=== PATIENT | male | born 1945 | race Caucasian/White ===

== ENCOUNTER 2024-06-15 16:05 | Emergency (ER) | payer MEDICARE ==
[~2024-06-15] VITALS: Ht 177.8 cm; Wt 69.2 kg
[~2024-06-15 16:05] MED LIST: ASCO500C18 PO; ASPI-611 PO; CHOL10008 PO; COR3.125T PO; DOXY-1 PO; ESCI-8 PO; FLO0.4C PO; MULT-620 PO; PRED1TAB PO; ROSU20TA2 PO; TICA90TA PO; TOLT4CAP28 PO; UBID100C45 PO
[2024-06-15 16:22] VITALS: BP 99/46; PULSE 78; RESP 16; TEMP 98.4; O2SAT 98
== END 2024-06-15 19:38 | disposition left against medical advice (07) ==
LOC: ER 16:06
DX: R10.9 Unspecified abdominal pain (principal); Z53.21 Procedure and treatment not carried out due to patient leaving prior to being seen by health care provider

== ENCOUNTER 2024-06-18 15:39 | Outpatient (CLI) | payer MEDICARE | END 2024-06-18 23:59 | disposition home or self-care (01) | LOC: MRI 15:39 | PROVIDERS: ATTEND Internal Medicine | DX: M86.8X8 Other osteomyelitis, other site (principal); M89.9 Disorder of bone, unspecified; G96.191 Perineural cyst | CPT/HCPCS: 72195 ==

== ENCOUNTER 2024-06-25 16:32 | Emergency (ER) | payer MEDICARE ==
[~2024-06-25] VITALS: Ht 180.3 cm; Wt 68.2 kg
[2024-06-25] MEDS: morphine 4 MG/ML inj SYRINge IV ONE (18:55)
[2024-06-25] MEDS: ondansetron/PF 4mg/2ml inj IV ONE (18:55)
[2024-06-25 19:19] LABS: BASOPHILS % (AUTO) 0.8 % (0-1); EOSINOPHILS # (AUTO) 0.2 X10'3 (0-0.9); HEMATOCRIT 39.3 % (42.0-52.0); HEMOGLOBIN 13.3 g/dl (14.0-17.9); LYMPHOCYTES # (AUTO) 0.9 X10'3 (1.1-4.8); LYMPHOCYTES % (AUTO) 17.4 % (21-51); MEAN CORPUSCULAR HEMOGLOBIN 30.1 PG (27.0-31.0); MEAN CORPUSCULAR HGB CONC 33.9 g/dL (33.0-36.5); MEAN CORPUSCULAR VOLUME 88.9 FL (78-98); MEAN PLATELET VOLUME 8.2 FL (7.4-10.4); MONOCYTES # (AUTO) 0.7 X10'3 (0-0.9); MONOCYTES % (AUTO) 14.3 % (2-12); NEUTROPHILS # (AUTO) 3.2 X10'3 (1.8-7.7); NEUTROPHILS % (AUTO) 64.5 % (42-75); PLATELET COUNT 143 X10'3 (140-440); RED BLOOD COUNT 4.42 X10'6 (4.70-6.10); RED CELL DISTRIBUTION WIDTH 13.8 % (11.5-14.5)
[2024-06-25] MEDS: normal saline 1000ML IV soln IVB ONE (19:19)
[2024-06-25 19:23] LABS: ALBUMIN 3.6 G/DL (3.4-5.0); ANION GAP 6 (8-16); BLOOD UREA NITROGEN 26 MG/DL (7-18); BUN/CREATININE RATIO 20.3 (10.0-20.0); CALCIUM 9.1 MG/DL (8.5-10.1); CHLORIDE 105 MMOL/L (99-107); CREATININE 1.28 MG/DL (0.60-1.10); GLUCOSE 94 MG/DL (70-104); LIPASE 31 U/L (16-77); POTASSIUM 4.3 MMOL/L (3.5-5.1); SODIUM 140 MMOL/L (135-145); TOTAL CARBON DIOXIDE 29.1 MMOL/L (24-32); eCRCL 47 ML/MIN; eGFR 54 ML/MIN
[2024-06-25] MEDS ORDERED: iohexol 300mg/ml 100ml inj. ONE (19:33)
[2024-06-25 20:18] LABS: BILIRUBIN,URINE NEGATIVE (Neg); CLARITY,URINE CLEAR (Clear); COLOR,URINE YELLOW (Yellow); GLUCOSE, URINE >=1000 mg/dl (Neg); KETONES,URINE NEGATIVE (Neg); LEUKOCYTE ESTERASE ,URINE NEGATIVE (Neg); NITRITES, URINE NEGATIVE (Neg); OCCULT BLOOD,URINE NEGATIVE (Neg); PH,URINE 5.5 (4.8-8.0); PROTEIN,URINE NEGATIVE (Neg); UROBILINOGEN,URINE 0.2 E.U/dL (0.2-1.0)
[2024-06-25 20:23] LABS: UA COLLECTION TYPE URINAL
[2024-06-25 20:25] LABS: BACTERIA,URINE NONE SEEN /HPF (Neg); RBC,URINE 0-2 /HPF (0-2); SPERM FEW /HPF (NEGATIVE); SQUAMOUS EPITHELIAL CELL,UR FEW /LPF (FEW); WBC,URINE 0-4 /HPF (0-4)
[2024-06-25] MEDS: acetaminophen 1,000mg/100ml IV 100 ML IV ONE (21:11)
[2024-06-25 22:03] VITALS: BP 93/51; PULSE 67; RESP 16; TEMP 98.1; O2SAT 98
== END 2024-06-25 22:06 | disposition home or self-care (01) ==
LOC: ER 16:33
DX: R10.31 Right lower quadrant pain (principal); Z88.2 Allergy status to sulfonamides; I25.10 Atherosclerotic heart disease of native coronary artery without angina pectoris; E78.00 Pure hypercholesterolemia, unspecified; I10 Essential (primary) hypertension; I25.2 Old myocardial infarction; K21.9 Gastro-esophageal reflux disease without esophagitis; Z95.1 Presence of aortocoronary bypass graft; Z79.82 Long term (current) use of aspirin; Z79.899 Other long term (current) drug therapy; Z79.52 Long term (current) use of systemic steroids
CPT/HCPCS: 36415; 74177; 80048; 81001; 83605; 83690; 85025; 96361; 96374; 96375; 99285; A6258; J0131; J2270; J2405; J7030; Q9967; 96365

== ENCOUNTER 2025-06-17 17:41 | Emergency (ER) | payer MEDICARE, OTHER ==
[~2025-06-17] VITALS: Ht 180.3 cm; Wt 68.2 kg
[~2025-06-17 17:41] MED LIST changes: -CHOL10008 PO; +CHOL25CA2 PO; -FLO0.4C PO; +TAMS-55 PO
[2025-06-17 18:48] VITALS: TEMP 97.6
[2025-06-17] MEDS: LIDOcaine 1% 30ml preserv. free vial SQ STA (21:06)
--- NOTE | 2025-06-17 21:23 | Physician Documentation ---
History of Present Illness ~ Chief Complaint: Laceration Stated Complaint: LAC ON RT PINKIE FINGER Time Seen by MD: 20:43 Primary Medical Doctor: GAYATRI Mode of Arrival: Dropped Off [facility] 80-year-old male presents to the ED after having his right 5th finger injured today while at a golf tournament. He says he was helping someone erect it can be 10 when they did it without him knowing and pinched his finger and the contraction.. The patient also takes blood thinners and has issues with bleeding . Day after injury in his fingers he has had difficulty stopping the bleeding Day of Onset: Jun 17, 2025 Tetanus Within 5 Years: No (unk) Medication Reconciliation Allergies: Coded Allergies: Sulfa (Sulfonamide Antibiotics) (Unverified Allergy, Unknown, 06/17/25) Scheduled Ascorbic Acid (Vitamin C), 1 CAP PO DAILY, (Reported) Aspirin (Aspir 81), 1 TAB PO DAILY, (Reported) Carvedilol (Carvedilol), 3.125 MG PO BID Cholecalciferol (Vitamin D3) (Vitamin D3), 1 CAP PO DAILY, (Reported) Doxycycline Hyclate (Doxycycline Hyclate), 1 CAP PO Q12H, (Reported) Escitalopram Oxalate (Escitalopram Oxalate), 1 TAB PO DAILY, (Reported) Multivitamins (Multivitamins), 1 TAB PO DAILY, (Reported) Prednisone* (Prednisone*), 5 TAB PO DAILY, (Reported) Rosuvastatin Calcium* (Crestor*), 1 TAB PO HS, (Reported) Tamsulosin Hcl* (Flomax*), 1 CAP PO HS, (Reported) Ticagrelor (Brilinta), 90 MG PO BID Tolterodine Tartrate (Tolterodine Tartrate ER), 1 CAP PO HS, (Reported) Ubidecarenone (Co Q-10), 100 MG PO DAILY, (Reported) Past Medical History Past Medical History: Coronary Artery Disease, High Cholesterol, Hypertension, Myocardial Infarction, GERD Past Surgical History: coronary bypass surgery Other Past Surgical History: CABGx2(2018, 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 Physical Exam Vital Signs: Temperature: 97.6, Source: Oral, Heart Rate: 72, Respiratory Rate: 10, BP: 94/49, Pulse Oximetry: 97, Weight: 68.180 Oxygen Flow Rate: 0 Physical Exam General: Alert, no apparent distress. Respiratory: Lungs clear, no respiratory distress. Extremities: It 5th finger on the anterior aspect has a notable skin tear in the proximal portion of the finger , 3x4cm Neurologic: Oriented x4. Psychiatric: Normal mood and affect. Skin: Normal color, warm and dry. No edema, no ecchymosis. Procedures Laceration/Wound Repair Laceration : Anesthesia: Lidocaine Prep: betadine, irrigated by physician Repaired: skin Wound Repaired With: Steri-strips, Dermabond Tolerated Procedure Well?: yes, no complications Procedure Note I essentially covered the exposed skin tear and used Steri-Strips along with Dermabond Dermabond to seal the area and stopped bleeding then I applied a nonadherent gauze and a metal finger brace and then covered it with a [place]an Progress Results/Orders Results/Orders Completed Orders - BRIJESH MENG NP Lidocaine 1% 30ml Vial (Xylocaine 1% Via (06/17/25 20:51) Vital Signs 06/17/25 06/17/25 06/17/25 17:43 18:48 19:01 Temp 97.6 97.6 Pulse 78 72 Resp 16 12 10 B/P (MAP) 99/43 94/49 (64) Pulse Ox 98 97 O2 Flow Rate 0 0 Departure Disposition: 01 HOME / SELF CARE / HOMELESS Impression: Primary Impression: Laceration Additional Impression: Skin tear Condition: Stable Discharge Instructions: Laceration Care (Skin Glue) Additional Instructions: Instructed keep the right finger no clean dry as much as possible especially over the next week. Medications as prescribed to avoid any infection Referrals: NO PRIMARY CARE PROVIDER (PCP) Prescriptions Cephalexin*Monohydrate* (Keflex*) 500 Mg Capsule 1 CAP PO Q12H for 10 Days, #20 CAP Prov: BRIJESH MENG MARKETING TEAM LEAD 06/17/25 Education Educated: Patient Educated regarding: diagnosis Signature Scribe Signature: f Attestation: Scribed for Brijesh Meng Hospitality Manager by Brijesh Meng - LEA . 06/17/25 21:23 BRIJESH MENG NP Jun 17, 2025 21:23
[2025-06-17] MEDS ORDERED: CEPH-585 PO (21:25)
[2025-06-17 21:35] VITALS: BP 112/59; PULSE 64; RESP 17; O2SAT 98
== END 2025-06-17 21:36 | disposition home or self-care (01) ==
LOC: ER 17:42
DX: S61.216A Laceration without foreign body of right little finger without damage to nail, initial encounter (principal); I10 Essential (primary) hypertension; E78.00 Pure hypercholesterolemia, unspecified; I25.10 Atherosclerotic heart disease of native coronary artery without angina pectoris; I25.2 Old myocardial infarction; Z88.2 Allergy status to sulfonamides; W22.8XXA Striking against or struck by other objects, initial encounter; Y93.53 Activity, golf; Y92.89 Other specified places as the place of occurrence of the external cause; Y99.8 Other external cause status
CPT/HCPCS: 12002; 99283; A6258; A6402; Z7610; A6449